=== PATIENT | female | born 1985 | race Caucasian/White ===

== ENCOUNTER 2017-07-13 18:49 | Emergency (ER) | payer MEDICAID, OTHER ==
[2017-07-13] MEDS ORDERED: Diazepam 5 MG TAB ONE (20:06)
[2017-07-13] MEDS ORDERED: Ketorolac Tromethamine 30 MG/ML VIAL ONE (20:06)
[2017-07-13 20:29] LABS: #Basophils 0.1 thou/uL (0.0-0.2); #Eosinphils 0.1 thou/uL (0.0-0.7); #Lymphocytes 3.7 thou/uL (1.20-3.40); #Monocytes 0.4 thou/uL (0.11-0.59); #Neutrophils 3.9 thou/uL (1.40-6.50); %Basophils 0.8 % (0.0-1.0); %Eosinophils 1.4 % (0.0-10.0); %Lymphocytes 45.3 % (21.0-51.0); %Monocytes 4.9 % (0.0-10.0); %Neutrophils 47.7 % (42.0-75.0); Hemoglobin 13.7 g/dL (12.0-16.0); Mean Corpuscular HGB CONC 32.9 g/dL (32.0-36.0); Mean Corpuscular Hemoglobin 28.8 pg (27.0-31.0); Mean Corpuscular Volume 87.4 fl (81.0-99.0); Mean Platelet Volume 7.7 fL (7.4-10.4); Platelet Count 283 thou/uL (130-400); RBC Distribution Width 13.2 % (11.5-14.5); Red Blood Cell (RBC) Count 4.75 mill/uL (4.20-5.40); White Blood Cell (WBC) Count 8.1 thou/uL (4.8-10.8)
[2017-07-13 20:44] LABS: Bilirubin Negative (Negative); Blood, Urine Small (Negative); Clarity CLEAR (Clear); Glucose, Urine (Dipstick) Negative (Negative); Leukocyte Negative (Negative); Nitrite Negative (Negative); Protein, Urine (Dipstick) Negative (Neg-Trace); Urobilinogen 0.2 mg/dL (0.2-1.0); pH, Urine 6.5 (5.0-9.0)
[2017-07-13 20:45] LABS: Pregnancy Test - Urine (BHCG) Negative (Negative); Pregu Control Background? CLEAR/WHITE (CLR/WHITE); Pregu Control Bar Appear? YES (CONTROL BAR)
[2017-07-13 20:46] LABS: Bacteria/HPF 1+ HPF (None Seen); Hyaline Casts/LPF 0-3 HYALINE CAST LPF (0-3 Hyaline); Squamous Epithelial 0-3 HPF (0-3); WBC/HPF 0-3 HPF (0-3)
[2017-07-13 20:49] LABS: ALT (SGPT) 13 U/L (8-55); AST (SGOT) 17 U/L (5-34); Albumin 4.3 g/dL (3.5-5.0); Alkaline Phosphatase 64 U/L (40-150); Anion Gap 13 mmol/L (10-20); BUN (Urea Nitrogen) 8 mg/dL (7.0-18.7); Bilirubin, Total 0.3 mg/dL (0.2-1.2); CK (CPK) 186 U/L (29-168); CRP (Inflammatory) 1.55 mg/dL (= or < 0.5); Calc. Creatinine Clearance 0 mL/min (70-130); Carbon Dioxide 27 mmol/L (22-29); Chloride 102 mmol/L (98-107); Estimated GFR-MDRD 85; Globulin 3.3 g/dL (2.4-3.5); Glucose 122 mg/dL (70-105); Potassium 3.3 mmol/L (3.5-5.1); Protein, Total 7.6 g/dL (6.0-8.3); Sodium 139 mmol/L (136-145)
--- NOTE | 2017-07-13 20:58 | RAD ---
RIGHT SHOULDER TWO VIEWS: 07/13/17 HISTORY: Right shoulder pain. FINDINGS/IMPRESSION: No fracture, dislocation or bony destruction is seen. There are mild degenerative change in the acrom ioclavicular joint. POS: [facility]
[2017-07-13] MEDS ORDERED: Acetaminophen 1,000 MG in Premix Bag 1 BAG IVPB SCH (21:30)
[2017-07-13] MEDS ORDERED: Lorazepam 2 MG/ML VIAL ONE (23:39)
--- NOTE | 2017-07-14 11:23 | CT ---
PRELIMINARY REPORT/[facility]/EMERGENCY AFTER HOURS PROCEDURE: Addendum created by Russell Saab MD on 07/14/2017 12:29 AM Central Time ([place]) There is no soft tissue inflammation, joint effusion, or abscess. Initial Report created on 07/14/2017 12:27 AM Central Time ([place]) EXAM: CT Right Upper Extremity With Intravenous Contrast, Shoulder EXAM DATE/TIME: Exam ordered 07/13/2017 11:57 PM CLINICAL HISTORY: 31 years old, female; Pain; Shoulder; Right; Patient HX: Er 24; Eval for possible abscess. 31f presen ts to the ed for evaluation of right shoulder pain radiating to hand for a week. Denies injury or tra shyam. Denies fever, chills. Reports waking up one morning about a week ago with pain which has gotten worse. Reports being on a fast when the pain started. Pt reports numbness and tingling in r [place] which is worse with compression of neck. Pt unable to have arm straight due to pain. ; Additional info: Pt with limited range of motion on rt upper ext. TECHNIQUE: Axial computed tomography images of the right shoulder with intravenous contrast. Sagittal reformatted images were created and reviewed. CONTRAST: 95 mL of ISOVUE 370 administered intravenously. COMPARISON: No relevant prior studies available. FINDINGS: Bones/joints: No fracture. No dislocation. Soft tissues: Mild soft tissue calcification adjacent to the anterior humeral head near the bicipital groove likely represents tendinitis or bursitis. IMPRESSION: No fracture. Thank you for allowing us to participate in the care of your patient. Dictated and Authenticated by: Russell Saab MD 07/14/2017 12:27 AM Central Time ([place] & [place]) FINAL REPORT EMERGENCY AFTER HOURS CT RIGHT SHOULDER: Date: 07/13/17 IMPRESSION: I agree with the preliminary interpretation given by Sola. Findings suggesting calcific peritendiniti s adjacent to the lesser tuberosity. No evidence for fracture or other acute osseous abnormality. If there is concern for internal derangement, consider MRI. POS: [facility]
--- NOTE | 2017-07-14 11:25 | CT ---
PRELIMINARY REPORT/[facility]/EMERGENCY AFTER HOURS PROCEDURE: EXAM: CT Cervical Spine Without Intravenous Contrast EXAM DATE/TIME: Exam ordered 07/13/2017 11:52 PM CLINICAL HISTORY: 31 years old, female; Pain; Neck pain; Patient HX: 31f presents to the ed for evaluation of right juana ulder pain for a week. Denies injury or trauma. Denies fever, chills. Reports waking up one morning a bout a week ago with pain which has gotten worse. Reports being on a fast when the pain started. TECHNIQUE: Axial computed tomography images of the cervical spine without intravenous contrast. Coronal and sagittal reformatted images were created and reviewed. COMPARISON: No relevant prior studies available. FINDINGS: Vertebrae: Straightening/reversal of the normal cervical lordosis may indicate muscle spasm. No acute fracture. Discs/spinal canal/neural foramina: No acute findings. No spinal canal stenosis. Soft tissues: Unremarkable. Lung apices: Unremarkable as visualized. IMPRESSION: 1. Straightening/reversal of the normal cervical lordosis may indicate muscle spasm. 2. No fracture. Thank you for allowing us to participate in the care of your patient. Dictated and Authenticated by: Russell Saab MD 07/14/2017 12:21 AM Central Time ([place] & [place]) FINAL REPORT EMERGENCY AFTER HOURS CT CERVICAL SPINE: Date: 07/13/17 IMPRESSION: I agree with the preliminary interpretation given by Sola. No evidence for fracture. Reversal of norm al cervical lordosis. POS: [facility]
== END 2017-07-14 00:58 | disposition home or self-care (01) ==
LOC: ERS 18:49
DX: M54.12 Radiculopathy, cervical region (principal); E11.9 Type 2 diabetes mellitus without complications; F20.9 Schizophrenia, unspecified; F17.290 Nicotine dependence, other tobacco product, uncomplicated; Z79.84 Long term (current) use of oral hypoglycemic drugs; Z79.899 Other long term (current) drug therapy; Z71.6 Tobacco abuse counseling
CPT/HCPCS: 36415; 72125; 80053; 81003; 81015; 81025; 82550; 83605; 85025; 85652; 86140; 87040; 87086; 96372; 96374; 96375; 99406; J0131; J1885; J2060

== ENCOUNTER 2017-07-16 13:52 | Emergency (ER) | payer MEDICAID, OTHER | END 2017-07-16 18:25 | disposition home or self-care (01) | LOC: ERS 13:52 | DX: M54.12 Radiculopathy, cervical region (principal); E11.9 Type 2 diabetes mellitus without complications; F20.9 Schizophrenia, unspecified; F43.10 Post-traumatic stress disorder, unspecified; F17.290 Nicotine dependence, other tobacco product, uncomplicated; F60.3 Borderline personality disorder | CPT/HCPCS: 99283 ==

== ENCOUNTER 2017-08-10 14:08 | Outpatient (CLI) | payer OTHER | END 2017-08-10 14:09 | disposition home or self-care (01) | LOC: BICRAD 14:08 | PROVIDERS: ATTEND Internal Medicine | DX: Z02.71 Encounter for disability determination (principal) | CPT/HCPCS: 72040 ==

== ENCOUNTER 2017-10-12 22:59 | Emergency (ER) | payer MEDICAID ==
[2017-10-13] MEDS ORDERED: Ketorolac Tromethamine 60 MG/2 ML VIAL ONE (00:22)
== END 2017-10-13 00:50 | disposition home or self-care (01) ==
LOC: ERS 22:59
DX: M54.6 Pain in thoracic spine (principal); Z71.6 Tobacco abuse counseling; F20.9 Schizophrenia, unspecified; F43.10 Post-traumatic stress disorder, unspecified; F17.290 Nicotine dependence, other tobacco product, uncomplicated; E11.9 Type 2 diabetes mellitus without complications
CPT/HCPCS: 96372; 99406; J1885

== ENCOUNTER 2017-10-15 11:32 | Outpatient (CLI) | payer OTHER ==
--- NOTE | 2017-10-15 14:24 | RAD ---
RIGHT KNEE 2 VIEWS: Date: 10/15/17 HISTORY: Joint problems. Fibromyalgia. COMPARISON: None. FINDINGS: No fracture or malalignment. Soft tissues unremarkable. No effusion. IMPRESSION: No acute abnormality. POS: [facility]
--- NOTE | 2017-10-15 14:27 | RAD ---
RIGHT SHOULDER 3 VIEWS: Date: 10/15/17 HISTORY: Fibromyalgia. Joint problems. COMPARISON: None. FINDINGS: No fracture. No malalignment. Ribs are unremarkable. Minimal degenerative change acromioclavicular lisa int. IMPRESSION: Unremarkable exam. POS: [facility]
--- NOTE | 2017-10-15 14:27 | RAD ---
LUMBAR SPINE 3 VIEWS: Date: 10/15/17 HISTORY: Joint problems. Pain. FINDINGS: No fracture. No malalignment. Five non-rib bearing lumbar-type vertebrae. Minimal narrowing L5-S1 dis c space. IMPRESSION: No acute abnormality. POS: [facility]
== END 2017-10-15 11:33 | disposition home or self-care (01) ==
LOC: RAD 11:32
PROVIDERS: ATTEND Psychiatry & Neurology Neurology
DX: M25.9 Joint disorder, unspecified (principal)
CPT/HCPCS: 72100

== ENCOUNTER 2017-12-03 22:25 | Emergency (ER) | payer SELFPAY ==
[2017-12-03 22:55] LABS: #Basophils 0.1 thou/uL (0.0-0.2); #Eosinphils 0.1 thou/uL (0.0-0.7); #Lymphocytes 4.2 thou/uL (1.20-3.40); #Monocytes 0.7 thou/uL (0.11-0.59); #Neutrophils 6.9 thou/uL (1.40-6.50); %Basophils 1.1 % (0.0-1.0); %Eosinophils 1.1 % (0.0-10.0); %Lymphocytes 34.8 % (21.0-51.0); %Monocytes 5.9 % (0.0-10.0); %Neutrophils 57.1 % (42.0-75.0); Mean Corpuscular HGB CONC 34.2 g/dL (32.0-36.0); Mean Corpuscular Hemoglobin 30.1 pg (27.0-31.0); Mean Corpuscular Volume 88.1 fL (78.0-98.0); Mean Platelet Volume 6.8 fL (7.4-10.4); Platelet Count 360 thou/uL (130-400); RBC Distribution Width 12.1 % (11.5-14.5); Red Blood Cell (RBC) Count 4.32 mill/uL (4.20-5.40)
[2017-12-03 23:15] LABS: ALT (SGPT) 19 U/L (8-55); AST (SGOT) 16 U/L (5-34); Alkaline Phosphatase 85 U/L (40-150); Anion Gap 12 mmol/L (10-20); BUN (Urea Nitrogen) 16 mg/dL (7.0-18.7); Bilirubin, Total 0.4 mg/dL (0.2-1.2); Calc. Creatinine Clearance 0 mL/min (70-130); Calcium 9.5 mg/dL (7.8-10.44); Carbon Dioxide 22 mmol/L (22-29); Chloride 104 mmol/L (98-107); Estimated GFR-MDRD 83; Globulin 3.1 g/dL (2.4-3.5); Glucose 85 mg/dL (70-105); Lipase 16 U/L (8-78); Potassium 3.6 mmol/L (3.5-5.1); Protein, Total 7.1 g/dL (6.0-8.3); Sodium 134 mmol/L (136-145)
[2017-12-04 01:48] LABS: Bilirubin Negative (Negative); Blood, Urine Negative (Negative); Clarity CLEAR (Clear); Glucose, Urine (Dipstick) Negative (Negative); Leukocyte Negative (Negative); Nitrite Negative (Negative); Pregnancy Test - Urine (BHCG) Negative (Negative); Pregu Control Background? CLEAR/WHITE (CLR/WHITE); Pregu Control Bar Appear? YES (CONTROL BAR); Protein, Urine (Dipstick) Negative (Neg-Trace); Specific Gravity 1.006 (1.002-1.036); Specific Gravity, Urine 1.006 (1.002-1.036); Urobilinogen 0.2 mg/dL (0.2-1.0); pH, Urine 6.5 (5.0-9.0)
[2017-12-04] MEDS ORDERED: Acetaminophen 500 MG TAB ONE (02:22)
[2017-12-04] MEDS ORDERED: Ketorolac Tromethamine 30 MG/ML VIAL ONE (02:23)
[2017-12-04 23:04] LABS: Chlamydia by PCR Not Detected (NotDetected); GC by PCR Not Detected (NotDetected)
== END 2017-12-04 02:53 | disposition home or self-care (01) ==
LOC: ERS 22:25
DX: R55 Syncope and collapse (principal); N76.0 Acute vaginitis; R11.10 Vomiting, unspecified
CPT/HCPCS: 36415; 80053; 81003; 81025; 83690; 85025; 87480; 87491; 87510; 87591; 87660; 93005; 96361; 96374; J1885